=== PATIENT | male | born 1955 | race Caucasian/White ===

== ENCOUNTER 2019-05-03 09:18 | Emergency (ER) | payer BC ==
--- NOTE | 2019-05-03 09:23 | Emergency Department Record ---
History of Present Illness - General Stated complaint: PAIN RIGHT HIP Time Seen by Provider: 05/03/19 09:21 Source: Patient Mode of Arrival: Ambulatory Limitations: No limitations - History of Present Illness Initial comments: 64 yo male presents with lower back pain for about one week. The pain radiates at times down the right leg. He denies and weakness. No numbness or tingling. No foot drop. He had similar symptoms about 10 years ago. No abdominal pain. No changes in bowel or bladder function. No fever, chills, nausea or vomiting. No diarrhea. MD Complaint: Extremity pain -: Week(s) Location: Right -: Yes Arthralgia Radiation: Proximal Quality: Aching Consistency: Constant Improves with: Rest Worsens with: Walking, Weight bearing, Other (prolonged sitting) - Related Data Previous Rx's Medication Instructions Recorded Methylprednisolone [Medrol Dose 4 mg PO DAILY #1 tab.ds.pk 05/03/19 Pack] Allergies Allergy/AdvReac Type Severity Reaction Status Date / Time No Known Drug Allergies Allergy Verified 05/03/19 09:27 Review of Systems Constitutional: Denies: Chills, Fever, Malaise, Weakness Eyes: Denies: Eye discharge ENT: Denies: Congestion, Throat pain Respiratory: Denies: Cough, Dyspnea Cardiovascular: Denies: Chest pain, Palpitations, Syncope Endocrine: Denies: Fatigue Gastrointestinal: Denies: Abdominal pain, Diarrhea, Nausea, Vomiting Genitourinary: Denies: Dysuria, Frequency, Hematuria Musculoskeletal: Reports: As per HPI, Arthralgia, Back pain. Denies: Joint swelling, Myalgia, Neck pain Skin: Denies: Bruising, Change in color, Rash Neurological: Denies: Headache, Numbness, Weakness Psychiatric: Denies: Anxiety Hematological/Lymphatic: Denies: Easy bleeding, Easy bruising Physical Exam - General General Appearance: Alert, Oriented x3, Cooperative, No acute distress Limitations: No limitations - Head Head exam: Atraumatic, Normal inspection - Eye Eye exam: Normal appearance. negative: Conjunctival injection, Scleral icterus - ENT ENT exam: Normal exam Ear exam: Normal external inspection Nasal Exam: Normal inspection Mouth exam: Normal external inspection - Neck Neck exam: Normal inspection - Respiratory Respiratory exam: Normal lung sounds bilaterally. negative: Rhonchi, Stridor, Wheezes - Cardiovascular Cardiovascular Exam: Regular rate, Normal rhythm, Normal heart sounds - GI/Abdominal GI/Abdominal exam: Soft. negative: Normal bowel sounds, Distended, Guarding, Hernia, Tenderness - Rectal Rectal exam: Deferred - exam: Deferred - Extremities Extremities exam: Normal inspection, Full ROM, Tenderness. negative: Calf tenderness, Joint swelling, Normal capillary refill, Pedal edema - Back Back exam: Reports: Paraspinal tenderness, Tenderness, Vertebral tenderness (lower lumbar). Denies: CVA tenderness (R), CVA tenderness (L), Muscle spasm - Neurological Neurological exam: Alert, Normal gait, Oriented X3, Reflexes normal. negative: Abnormal gait, Motor sensory deficit - Psychiatric Psychiatric exam: Normal affect, Normal mood. negative: Agitated, Anxious - Skin Skin exam: Dry, Intact, Normal color, Warm Course - Reevaluation(s) Reevaluation #1: 05/03/19 09:35 The examination is consistent with musculo-skeletal etiology. His symptoms are consistent with sciatica at this time. No motor weakness or sensory loss at this time. 05/03/19 10:40 The patient's XR was reviewed. Multi level degenerative changes, spurring. He will be referred for a new PCP at the [facility] We discussed home care and reasons to return if worse. Disposition Disposition: Discharge Clinical Impression: Sciatica Disposition: Home, Self-Care Condition: (1) Good Instructions: Sciatica (ED), Low Back Strain (ED) Additional Instructions: Review this ER visit and the tests performed with your new family doctor Call your new doctor for the next available follow up appointment Return to the ER for a recheck immediately if worse, any new concerns or questions Take the prescriptions provided as directed Prescriptions: Methylprednisolone [Medrol Dose Pack] 4 mg PO DAILY #1 tab.ds.pk Referrals: LUPE HUDSON [MEDICAL DOCTOR] - Time of Disposition: 10:41 Quality - Quality Measures Quality Measures: N/A - Blood Pressure Screening Does Patient Have Any of the Following: No Blood Pressure Classification: Hypertensive Reading Systolic Measurement: 180 Diastolic Measurement: 93 Screening for High Blood Pressure: < Pre-Hypertensive BP, F/U Documented > [G8950] Pre-Hypertensive Follow-up Interventions: Referral to alternative/primary care provider.
--- NOTE | 2019-05-03 11:25 | RADIOLOGY REPORT ---
EXAMINATION: Lumbar Spine Complete Views EXAM DATE: 05/03/2019 10:20 AM TECHNIQUE: AP, lateral, right and left oblique views INDICATION: low back pain with right leg radiation COMPARISON: 10/23/2008 ENCOUNTER: Not applicable FINDINGS: Stable vertebral body heights and alignment. Mild anterior lateral spurring throughout the lumbosacra l spine. Mild interspace narrowing L4-L5, L5-S1. SI joints patent and symmetrical. No spondylolysis o r spondylolisthesis. IMPRESSION: No acute abnormality, spondylitic changes described. Follow-up MRI as clinically directed Dictated by: Loc Ramsey MD on 05/03/2019 11:18 AM. .
== END 2019-05-03 11:40 | disposition home or self-care (01) ==
LOC: ER 09:18
DX: M54.41 Lumbago with sciatica, right side (principal)
CPT/HCPCS: 72110; 99283